=== PATIENT | female | born 1945 | race African-American/Black ===

== ENCOUNTER 2017-04-23 14:53 | Emergency (ER) | payer OTHER, BC ==
[~2017-04-23] VITALS: Ht 162.6 cm; Wt 81.7 kg
[~2017-04-23 14:53] MED LIST: ATENOLOL 25MG T25 M1 PO; BACTRIM DS TAB1 EACH PO; CARISOPRODOL 3350 MG PO; CLARITIN10 MG PO; HYDROCHLOROTH12.5 MG PO; KEFLEX500 MG PO; LIPITOR20 MG PO; LORTAB 5 MG/5001 TA1 PO; NORCO 7.5-3251 EACH PO; OMEGA 3-6-9 CO1 EACH PO; VITAMIN D3400 UNI1 PO; VITAMINC500 PO
[2017-04-23] MEDS ORDERED: MOBIC15 MG PO (16:19)
[2017-04-23] MEDS ORDERED: HYDROCODONE-AP1 EAC6 PO (16:19)
== END 2017-04-23 16:42 | disposition home or self-care (01) ==
LOC: ER 14:53
DX: M17.12 Unilateral primary osteoarthritis, left knee (principal); I10 Essential (primary) hypertension; E78.00 Pure hypercholesterolemia, unspecified; Z88.0 Allergy status to penicillin; Z88.1 Allergy status to other antibiotic agents; Z88.6 Allergy status to analgesic agent

== ENCOUNTER 2019-02-07 16:25 | Emergency (ER) | payer OTHER, BC ==
[~2019-02-07] VITALS: Ht 162.6 cm; Wt 79.4 kg
[~2019-02-07 16:25] MED LIST changes: +HYDROCODONE-AP1 EAC6 PO; +MOBIC15 MG PO
[2019-02-07] MEDS ORDERED: PLAVIX 75 MG TA75 MG PO (18:06)
[2019-02-07 18:33] LABS: ABSOLUTE NEUTROPHILS 1.6 thou/uL (1.4-8.2); BASOPHILS 1.9 % (0.0-2.0); EOSINOPHILS 4.4 % (0.0-3.0); HEMATOCRIT 42.7 % (37.0-47.0); HEMOGLOBIN 13.8 gm/dL (12.0-15.0); LYMPHOCYTES 32.6 % (24.0-44.0); MCH 29.8 pg (26.0-34.0); MCHC 32.3 g/dL (28.0-37.0); MCV 92.4 fL (80.0-100.0); MONOCYTES 10.4 % (1.0-8.0); PLATELET COUNT 220 thou/uL (150-400); POLYS 50.7 % (36.0-66.0); RBC 4.62 mil/uL (4.20-5.00); RDW 14.7 % (10.5-14.5); WBC 3.2 thou/uL (4.0-11.0)
[2019-02-07] MEDS ORDERED: LIPITOR40 MG PO (18:35)
[2019-02-07 18:38] LABS: CALCIUM 9.7 mg/dL (8.5-10.1); CREATININE 1.1 mg/dL (0.6-1.0); POTASSIUM 4.2 mmol/L (3.5-5.1)
[2019-02-07 20:55] VITALS: BP 162/68
== END 2019-02-07 21:12 | disposition home or self-care (01) ==
LOC: ER 16:25
PROVIDERS: Emergency Medicine
DX: R51 Headache (principal); E04.1 Nontoxic single thyroid nodule; I10 Essential (primary) hypertension; E78.00 Pure hypercholesterolemia, unspecified; Z88.6 Allergy status to analgesic agent; Z88.3 Allergy status to other anti-infective agents; Z88.0 Allergy status to penicillin; Z79.899 Other long term (current) drug therapy; Z90.49 Acquired absence of other specified parts of digestive tract; Z96.652 Presence of left artificial knee joint; Z79.01 Long term (current) use of anticoagulants